=== PATIENT | female | born 1930 | race Caucasian/White ===

== ENCOUNTER 2019-12-14 12:49 | Emergency (ER) | payer OTHER, BC ==
[2019-12-14 12:59] VITALS: BMI 26.2
[2019-12-14] MEDS ORDERED: ACETAMINOPHEN 325 MG TABLET (FP) PO ONE (15:18)
[2019-12-14] MEDS ORDERED: ACETAMINOPHEN 325 MG TABLET (FP) ONE ×2 (15:24→19:19)
--- NOTE | 2019-12-14 15:25 | PDOC ---
History of Present Illness - General Chief Complaint: Injury Stated Complaint: FALL Time Seen by Provider: 12/14/19 14:48 History Source: Patient, Family Exam Limitations: No Limitations - History of Present Illness Initial Comments: 12/14/19 15:18 89YOF with h/o CVA (residual right sided deficits), DM, HTN, HLD, right knee replacement, and left shoulder surgeries who presents s/p fall from her chair this morning as witnessed by her family members during breakfast. She notes having been reaching to cook pickled meat a food tray and lost her balance, falling backward and landing on her upper back, neck, and head. She struck the back of her head and sustained a small contusion but She was able to promptly pick herself up with assistance, and opted to finish her breakfast. Her family notes that they needed to push hard for her to come into the ED. The patient notes only bilateral shoulder pain with left worse than right. She did not take any pain medications today. Past History - Past Medical History Allergies/Adverse Reactions: Allergies Allergy/AdvReac Type Severity Reaction Status Date / Time No Known Allergies Allergy Unverified 12/14/19 12:59 Home Medications: Ambulatory Orders Aspirin [ASA -] 325 mg PO DAILY 07/01/15 Brimonidine Tartrate [Alphagan 0.15% -] 1 drop OD BID 07/01/15 Calcium 500 mg PO DAILY 07/01/15 Cyanocobalamin (Vitamin B-12) [B-12] 1,000 mcg PO DAILY 07/01/15 Glipizide [Glipizide ER] 2.5 mg PO DAILY 07/01/15 Insulin Aspart [Novolog] 5 unit SQ BID 07/01/15 Lisinopril [Prinivil] 10 mg PO DAILY 07/01/15 Metformin HCl [Glucophage] 500 mg PO BID 07/01/15 Simvastatin [Zocor -] 20 mg PO HS 07/01/15 Acetaminophen [Tylenol .Regular Strength -] 650 mg PO Q4H PRN #0 tablet Digoxin [Lanoxin -] 0.125 mg PO DAILY tablet 07/08/15 Metoprolol Succinate [Toprol XL -] 50 mg PO DAILY tab.sr.24h 07/08/15 COPD: No Diabetes: Yes HTN: Yes Hypercholesterolemia: Yes - Surgical History Orthopedic Surgery: Yes (R KNEE REPLACEMENT) - Psycho Social/Smoking Cessation Hx Smoking History: Never smoked Have you smoked in the past 12 months: No Hx Alcohol Use: No Drug/Substance Use Hx: No Substance Use Type: None Hx Substance Use Treatment: No Review of Systems - Review of Systems Able to Perform ROS?: Yes Comments:: 12/14/19 15:26 GEN: no fever, chills, generalized weakness, or malaise HEENT: no ear pain, eye pain, throat pain, throat swelling, nosebleed, vision change, or loose teeth SKIN: no cuts, abrasions, bruises, rashes, or jaundice CV: no chest pain, palpitations, or LOC RESP: no cough or SOB GI: no abdominal pain, nausea, vomiting, or black/bloody stool : no hematuria or flank pain/bruising MSK: shoulder pain, no joint pain, or joint swelling NEURO: no headache, seizure, numbness, tingling, or focal weakness PSYCH: no suicidality, homicidality, or substance use *Physical Exam - Vital Signs Last Vital Signs Temp Pulse Resp BP Pulse Ox 98.5 F 89 19 181/68 H 99 12/14/19 14:40 12/14/19 14:40 12/14/19 14:40 12/14/19 14:40 12/14/19 14:40 - Physical Exam 12/14/19 15:26 GEN: very pleasant elderly female in no distress, A/Ox4, answering all questions appropriately, making jokes, family at bedside HEENT: occipital contusion without hematoma, tiny shallow abrasion occiput, no obvious facial deformity, no cephalohematoma, no scalp laceration, no raccoon eyes, no proptosis, PERRLA, EOMI without pain, no nasal septal hematoma, no obvious CSF rhinorrhea, no epistaxis, no jaw malocclusion, no loose teeth, no bearden sign, no hemotympanum, no obvious CSF otorrhea CHEST WALL: no flail chest, no costal stepoff or deformity, no bruises or lesions CARDIOVASCULAR: regular rhythm, normal S1S2, 2/6 systolic murmur, capillary refill <2 seconds RESPIRATORY: symmetric chest expansion on inspiration, no increased WOB, no cyanosis ABDOMEN: abdomen soft, nondistended, nontender, pelvis stable EXTREMITIES: left shoulder humeral head deformity (protruding laterally) stated to be chronic with overlying well healed surgical scars without overlying skin trauma, no ttp NECK&BACK: no neck or back hematoma, no midline vertebral tenderness C/T/L spine , no spinal step-off or deformity, no paraspinous ttp CTL spine NEURO: CN II-XII grossly intact, 5/5 strength and intact sensation throughout, no truncal ataxia : no CVA tenderness or bruising SKIN: warm and dry, no pallor ED Treatment Course - RADIOLOGY Radiology Studies Ordered: Category Date Time Status CERVICAL SPINE CT W/O CONTR [CT] Stat CT Scan 12/14/19 15:[address] WITHOUT CONTRAST [CT] Stat CT Scan 12/14/19 15:16 Ordered SHOULDER-LEFT [RAD] Stat Radiology 12/14/19 15:16 Ordered SHOULDER-RIGHT [RAD] Stat Radiology 12/14/19 15:16 Ordered Medical Decision Making - Medical Decision Making 12/14/19 15:35 89YOF with h/o CVA, HTN, HLD, DM, right knee surgery, and left shoulder surgeries p/w fall from chair onto head now with shoulder pain. Initial Vital Signs Temp Pulse Resp BP Pulse Ox 98 F 70 18 211/52 H 97 12/14/19 12:52 12/14/19 12:52 12/14/19 12:52 12/14/19 12:52 12/14/19 12:52 Exam: As noted in Physical Exam section.scalp contusion, DDX IBNLT: scalp contusion, concussion, ICH, skull fracture, facial bone fracture W/U ordered: Head and C-spine CT, XR shoulder b/l TX ordered: Tylenol EKG: Reviewed; results as noted in ECG Review section. XR: CT: DISCHARGE The Pt has gotten significant relief of symptoms while in the ED. They have been observed without AMS, n/v, LOC, or focal neuro findings in the ED. Workup is not concerning for emergency-level pathology at this time. The Pt is appropriate for discharge with close outpatient follow up. They are comfortable with this plan and will follow up with their primary care provider in 1-3 days. Return precautions for concussion and CHI are discussed and they will come back to the ER if necessary. Discharge - Discharge Information Problems reviewed: Yes Clinical Impression/Diagnosis: Fall from ground level Cervical spine fracture Qualifiers: Encounter type: initial encounter Cervical vertebra fracture level: unspecified cervical vertebra Fracture type: closed Qualified Code(s): S12.9XXA - Fracture of neck, unspecified, initial encounter Condition: Stable Disposition: HOME - Admission No - Follow up/Referral Referrals: Clinton Gillespie MD [Primary Care Provider] - Ruiz Yoon MD [Staff Physician] - - Patient Discharge Instructions Additional Instructions: You were seen in the ER for a fall and a head, neck, and shoulder injury. We did CT scans and x-rays, and the new abnormality is that there are fractures in the bones of your neck. We called the neurosurgeon container finisher. You need to wear the cervical collar at all times to prevent spinal cord injury. Please follow up with the neurosurgeon (we are providing the info in this packet), and your primary care provider as soon as possible (tomorrow0. Call their clinic as soon as possible, tell them you were seen in the ER, and tell them you need an appointment. If you have any new or worsening symptoms, especially new numbness , tingling, or paralysis or weakness, severe pain, headache, fainting, or other new concerns, please come back to the ER at any time (24 hours a day). or symptoms that make it unsafe to drive or have someone drive you, please call 911. - Post Discharge Activity
--- NOTE | 2019-12-14 16:38 | PDOC ---
Attending Attestation - Resident Resident Name: [place] - ED Attending Attestation I have performed the following: I have examined & evaluated the patient, The case was reviewed & discussed with the resident, I agree w/resident's findings & plan - HPI HPI: 12/14/19 16:29 Pleasant 89-year-old female with history of traumatic left shoulder dislocation requiring operative fixation, old CVA with residual right upper extremity weakness, otherwise high functioning and ambulatory with walker at baseline presents now brought in with family after accidental fall from chair. Patient was at breakfast, leaned over to assist another family member, and the chair tipped over, causing patient to fall onto her back and striking the back of her head. No LOC, no generalized headache/vision change/speech change/nausea/ vomiting/focal deficit, presents now for evaluation of persistent upper back/ bilateral shoulder pain, no associated motor or sensory deficit. - Physicial Exam PE: 12/14/19 16:31 Vitals as noted, hypertensive at triage then improved alert, pleasant, joking with staff, conversant small 1cm occipital abrasion, no hematoma/scalp ttp or deformity no midline spine ttp in cervical or thoracic region, FROM neck baseline LROM L and R shoulders, able to abduct about 90 degrees. FROM elbow/ wrist/hand 5/5 motor b/l lower extremities remainder of trauma exam normal - Medical Decision Making 12/14/19 16:38 89-year-old female ambulates with walker at baseline presents with minor head injury and upper back injury status post accidental fall, on history or physical exam. Hypertensive here but neurologically intact, trauma exam is limited to occiput, appears to have baseline range of motion of both shoulders and is neurovascular intact. CT head/cervical spine Shoulder x-rays Pain control Reassess and disposition accordingly 12/14/19 18:41 ct head without acute pathology. b/l shoulders with chronic findings. ct cspine with multilevel acute fractures, c-collar applied, remains neuro intact nsgy consult and dispo 12/14/19 19:22 d/w nsgy, given nonoperative (clinically and pt refusing), can d/c with c- collar and outpt f/u. Pt adamantly refusing admission for neuro checks, understands all risks. Given discussion with nsgy, will d/c with f/u Dr. Yoon and strict return precautions. Heart Score/ECG Review #1 ECG reviewed & interpreted by me at: 15:19 General ECG Interpretation: Sinus Rhythm, Normal Rate (64), Normal Intervals ( qtc 410), No acute ischemic changes
[2019-12-14] MEDS ORDERED: ACETAMINOPHEN 500 MG TABLET (FP) PO ONE (19:15)
[2019-12-14 19:49] VITALS: BP 166/78; PULSE 88; TEMP 98.6
--- NOTE | 2019-12-15 12:42 | EKG ---
Test Reason : Blood Pressure : / mmHG Vent. Rate : 064 BPM Atrial Rate : 064 BPM P-R Int : 170 ms QRS Dur : 074 ms QT Int : 398 ms P-R-T Axes : -13 012 044 degrees QTc Int : 410 ms POOR DATA QUALITY, INTERPRETATION MAY BE ADVERSELY AFFECTED NORMAL SINUS RHYTHM NORMAL ECG Confirmed by MD RUTH, RICHELLE ([id number]) on 12/15/2019 12:41:53 PM Referred By: Confirmed By:RICHELLE MIRANDA MD
== END 2019-12-14 19:51 | disposition home or self-care (01) ==
LOC: JER 12:49 → JERFT 12:49 → JER 19:51
DX: S12.9XXA Fracture of neck, unspecified, initial encounter (principal); W07.XXXA Fall from chair, initial encounter; Y93.89 Activity, other specified; Y92.010 Kitchen of single-family (private) house as the place of occurrence of the external cause; Y99.8 Other external cause status; I10 Essential (primary) hypertension; E78.5 Hyperlipidemia, unspecified; E78.00 Pure hypercholesterolemia, unspecified; E11.9 Type 2 diabetes mellitus without complications; Z79.4 Long term (current) use of insulin; I69.851 Hemiplegia and hemiparesis following other cerebrovascular disease affecting right dominant side; Z99.89 Dependence on other enabling machines and devices
CPT/HCPCS: 70450-TC; 72125-TC; 73030-TC-LT-FY; 73030-TC-RT-FY; 93005; 93010; 99282-25